=== PATIENT | female | born 1970 | race Hispanic/Latino ===

== ENCOUNTER 2024-10-15 08:07 | Day surgery (SDC) | payer OTHER, MEDICARE ==
[2024-10-15] VITALS (16 sets, daily range): BP systolic 115–147; BP diastolic 62–78; PULSE 72–86; RESP 15–18; TEMP 96.9–97.9
[2024-10-15] MEDS: LACTATED RINGERS 1000ML 1,000 ML IV ONE
[2024-10-15 08:52] LABS: IMMATURE GRANULOCYTE ABSOLUTE 0.01 K/uL (0-1); NUCLEATED RED BLOOD CELLS 0.0 % (0.0-0.19); PLATELET COUNT (AUTO) 321 K/uL (130-400); RED BLOOD CELL COUNT(AUTO) 4.74 MIL/uL (4.00-5.50); RED CELL DISTRIBUTION WIDTH 13.3 % (11.0-15.5); WHITE BLOOD COUNT (AUTO) 6.1 K/uL (4.8-10.8)
[2024-10-15] MEDS ORDERED: GLYCOPYRROLATE 0.2 MG/ML 5 ML VIAL ONE (12:01)
[2024-10-15] MEDS ORDERED: LIDOCAINE PF 100MG/5ML (2%) SYRINGE 5ML ONE (12:01)
[2024-10-15] MEDS ORDERED: NEOSTIGMINE METHYLSULFATE 1MG/ML IV ONE (12:01)
[2024-10-15] MEDS ORDERED: SUCCINYLCHOLINE CHLORIDE 20 MG/ML 10 ML VIAL ONE (12:01)
[2024-10-15] MEDS ORDERED: MIDAZOLAM HCL 1 MG/ML 2ML VIAL ONE (12:02)
[2024-10-15] MEDS: CLINDAMYCIN IVPB 900MG/50ML 50 ML IV ONE (13:31)
--- NOTE | 2024-10-15 14:00 | OP ---
Operative Note: DATE OF PROCEDURE: 10/15/24 SURGEON: USMAN SEGOVIA MD BUCKLE INSPECTOR: [] ANESTHESIA: [] General ANESTHESIOLOGIST/COOK FROZEN DESSERT: [] PREOPERATIVE DIAGNOSIS: [] Lipoma right arm POSTOPERATIVE DIAGNOSIS: [] The same SYNOPSIS: [] PROCEDURE: [] Excision lipoma of the right arm ESTIMATED BLOOD LOSS: [] None INDICATIONS: [] DESCRIPTION OF PROCEDURE: [] With the patient prepped in usual fashion he longitudinal incision was done with the right arm. Using cautery and blunt dissection I was able to excise he in about 7 cm lipoma. Bleeding points were cauterized. Of the irrigation we approximated subcutaneous tissue with a 3-0 Vicryl. Incision was closed with 4-0 Monocryl and Steri-Strips. We placed 20 cc of local anesthesia USMAN SEGOVIA MD Oct 15, 2024 14:00
[2024-10-15] MEDS ORDERED: SUGAMMADEX SODIUM 200 MG/2 ML VIAL IV ONE (14:04)
== END 2024-10-15 16:43 | disposition home or self-care (01) ==
LOC: DAH 08:07
PROVIDERS: ATTEND Surgery
DX: D17.21 Benign lipomatous neoplasm of skin and subcutaneous tissue of right arm (principal); F41.9 Anxiety disorder, unspecified; E66.9 Obesity, unspecified; E78.5 Hyperlipidemia, unspecified; Z88.0 Allergy status to penicillin; Z98.51 Tubal ligation status; Z68.38 Body mass index [BMI] 38.0-38.9, adult; Z79.899 Other long term (current) drug therapy
CPT/HCPCS: 24071; 85025; 81025; 36415; 88304; A4663; J7120 ×2; J3010; J1100; J0330; J0665; J3490 ×3; J2003; J2250; J2704; J2405; J2710; A4215; A4222; A4221; A4216; A4450; A4223 ×2